=== PATIENT | male | born 1945 | race African-American/Black ===

== ENCOUNTER 2017-01-08 19:14 | Inpatient (IN) ==
[~2017-01-08 19:14] MED LIST: NS ONE
[2017-01-08] MEDS ORDERED: QUELICIN ONE ×2 (19:19)
[2017-01-08] MEDS ORDERED: AMIDATE ONE ×2 (19:19)
[2017-01-08] MEDS ORDERED: AMIDATE IV ONE (19:30)
[2017-01-08] MEDS ORDERED: QUELICIN IV ONE (19:30)
[2017-01-08 19:38] LABS: MANUAL DIFF NEEDED? NO
[2017-01-08 19:42] LABS: BASO% 0.3 % (0.0-0.8); EOS# 0.03 X1000 (0.0-0.7); EOS% 0.3 % (0.0-10.0); HEMATOCRIT 43.3 % (42.0-52.0); HEMOGLOBIN 14.7 g/dL (14.0-18.0); IMM GRAN# 0.03 X1000 (0.0-0.04); IMM GRAN% 0.3 % (0.0-0.5); LYMPH# 2.28 X1000 (1.2-3.4); LYMPH% 19.1 % (20.5-51.1); MCH 30.9 PG (27-31); MCHC 33.9 g/dL (33-37); MCV 91.2 FL (81-99); MONO# 1.14 X1000 (0.11-0.59); MONO% 9.6 % (1.7-9.3); MPV 11.4 FL (7.4-10.4); NEUT% 70.4 % (42.2-75.2); PLT 228 X1000 (130-400); RBC 4.75 XMIL (4.7-6.1)
[2017-01-08] MEDS ORDERED: ATIVAN IV ONE (19:52)
--- NOTE | 2017-01-08 19:57 | Diag Imaging Result Doc PS360 ---
EXAM: HEAD W/O CONTRAST HISTORY: ams TECHNIQUE: CT of the head without contrast COMMENT: There is a massive intracerebral bleed. Apparently arising from the basal ganglia region on the left side. The hematoma in the basal ganglia region exceeds 4.3 x 6.9 cm in size. This has extended into the ventricular system including the third and fourth ventricles. There is marked periventricular white matter edema, complete effacement of the sulci, transtentorial herniation particularly on the left and shift of midline structures to the right by a centimeter. None of these findings were present on 11/10/2015. There is an air-fluid level in the right maxillary sinus and some fluid and mucosal thickening is present in the right ethmoids. The calvarium appears to be intact. IMPRESSION: Probable hypertensive bleed in the left basal ganglia region with extension into the ventricular system, marked cerebral edema, transtentorial and trans falcial herniation. It may be presumed that there is obstruction of the ventricular system. The findings were discussed with Howard Koroma MD at 01/08/2017 7:54 PM. Electronically signed by Perry Pittman 01/08/2017 7:55 PM
[2017-01-08] MEDS ORDERED: APRESOLINE IV ONE (20:01)
--- NOTE | 2017-01-08 20:05 | Diag Imaging Result Doc PS360 ---
EXAM: CHEST-PORTABLE HISTORY: ams/ett TECHNIQUE: AP portable at 1919 COMMENT: There is an endotracheal tube approximately 2 cm above the bridgette. The heart size appears somewhat smaller. The appearance of the chest, otherwise, considering differences in technique has not changed significantly since 10/30/2016. IMPRESSION: No evidence of acute disease. Electronically signed by Perry Pittman 01/08/2017 8:03 PM
[2017-01-08 20:16] LABS: URINE CULTURE PL NEEDED? NO
[2017-01-08 20:20] LABS: BE -2.1 mmoll (-3.0-3.0); BLOOD TYPE ARTERIAL; DRAW SITE R RADIAL; METHB 1.6 % (0.0-1.5); O2(CT) 18.9 mL/dL (15.0-23.0); PCO2(98.6) 31 mmHg (35-45); PO2(98.6) 259 mmHg (60-100); SAMPLE BLOOD; SAO2 99.7 % (95.0-100.0); SRATE 14 BPM; THB 13.5 g/dL (11.5-17.4); TVOL 600 mL; pH(98.6) 7.44 (7.35-7.45)
[2017-01-08 20:22] LABS: BILIRUBIN URINE NEGATIVE (NEGATIVE); BLOOD URINE 1+ (NEGATIVE); CLARITY CLEAR (CLEAR); COLOR YELLOW; LEUKOCYTES URINE NEGATIVE (NEGATIVE); NITRITE URINE NEGATIVE (NEGATIVE); SP GRAVITY URINE 1.015; UROBILINOGEN URINE NORMAL
[2017-01-08 20:23] LABS: URINE RBC <10 /HPF (<10); URINE SOURCE CATH; URINE WBC <10 /HPF (<10)
[2017-01-08 20:26] LABS: UR AMPHETAMINES QUAL NONE DETECTED (NONE DETECT); UR BARBITUATES QUAL NONE DETECTED (NONE DETECT); UR BENZODIAZEPIN QUAL NONE DETECTED (NONE DETECT); UR CANNABINOIDS QUAL NONE DETECTED (NONE DETECT); UR COCAINE QUAL NONE DETECTED (NONE DETECT); UR MDMA QUAL NONE DETECTED (NONE DETECT); UR METHADONE QUAL NONE DETECTED (NONE DETECT); UR METHAMPHETAMINE QUAL NONE DETECTED (NONE DETECT); UR OPIATES QUAL NONE DETECTED (NONE DETECT); UR OXYCODONE QUAL NONE DETECTED (NONE DETECT); UR PCP QUAL NONE DETECTED (NONE DETECT); UR TCA QUAL NONE DETECTED (NONE DETECT)
[2017-01-08 20:44] LABS: ALBUMIN 3.8 g/dL (3.5-5.0); CALCIUM 8.8 mg/dL (8.8-10.2); POTASSIUM 3.2 mmol/L (3.5-5.1); TOTAL BILIRUBIN 0.6 mg/dL (0.20-1.00); TOTAL PROTEIN 7.1 g/dL (6.3-8.3)
[2017-01-08 20:55] LABS: ALLEN TEST YES; MODALITY VENTILATOR
--- NOTE | 2017-01-08 21:59 | PROVIDER DOCUMENTATION ---
This chart was entered by Jennifer Moreno Scribe, acting as scribe for Howard Koroma MD. HPI-General Adult - General Stated Complaint: unresponsive Time Seen by Provider: 01/08/17 19:14 Source: other (SECURITY) Unable to obtain history due to:: urgency (unresponsive) Allergies/Adverse Reactions: Patient Allergies Allergy/AdvReac Type Severity Reaction Status Date / Time Iodinated Contrast Media - Allergy NAUSEA Verified 01/08/17 19:37 Oral and Home Medications: Home Medication List Medication Instructions Recorded Confirmed Last Taken Type Carvedilol 25 mg PO BID 11/19/13 11/22/16 1 Day Ago History Clonidine HCl 0.3 mg PO TID 11/19/13 11/22/16 1 Day Ago History Clopidogrel [Plavix] 75 mg PO DAILY 11/19/13 11/22/16 11/18/16 History Febuxostat [Uloric] 40 mg PO DAILY 11/19/13 11/22/16 1 Day Ago History Isosorbide Mononitrate [Imdur] 120 mg PO QAM 11/19/13 11/22/16 1 Day Ago History Lisinopril 10 mg PO QAM 11/19/13 11/22/16 1 Day Ago History PRAVAstatin [Pravachol] 40 mg PO QHS 11/19/13 11/22/16 1 Day Ago History Trazodone [Desyrel] 100 mg PO QHS 11/19/13 11/22/16 1 Day Ago History Glimepiride 2 mg PO BID #0 01/10/16 11/22/16 1 Day Ago Rx Famotidine 20 mg PO BID 10/30/16 11/22/16 Unknown History Hydralazine [Apresoline] 50 mg PO QAM 10/30/16 11/22/16 Unknown History - History of Present Illness -Gen Adult Nature of Presenting Problems: 71 year old M was found in hospital bathroom unresponsive by a visitor. Security was notified and then came to notify the ED staff. PT was laying face down in vomit with pants down to his knees. Severity: reports: severe Onset/Duration: reports: unsure Review of Systems - Adult - REVIEW OF SYSTEMS - ADULT ROS:: unobtainable per condition Constitutional: reports: no symptoms reported Eyes: reports: no symptoms reported Ears, Nose, Mouth & Throat: reports: no symptoms reported Cardiovascular: reports: no symptoms reported Respiratory: reports: no symptoms reported Gastrointestinal: reports: nausea, vomiting Genitourinary: reports: no symptoms reported Musculoskeletal: reports: no symptoms reported Integumentary: reports: no symptoms reported Neurological: reports: no symptoms reported Psychiatric: reports: no symptoms reported Endocrine: reports: no symptoms reported Hematologic/Lymphatic: reports: no symptoms reported Allergic/Immunologic: reports: no symptoms reported All Other Systems: Reviewed and Negative Past History - Adult - PAST MEDICAL HISTORY-ADULT Review of Records: reports: Nursing Assessment Review, Medications Reviewed Major Childhood Illnesses: reports: denies history Cardiovascular: reports: CAD, CHF, HTN Respiratory: reports: lung disease Gastrointestinal: reports: denies history Obstetrical/Gynecological: reports: denies history Genitourinary: reports: dialysis, ESRD, kidney disease Musculoskeletal: reports: denies history Neurological: reports: denies history Endocrine/Immune: reports: Diabetes Other Conditions: reports: denies history - PRIOR SURGERIES/PROCEDURES Surgical/Procedure History: reports: cholecystectomy, cardiac stent, other ( retina tear repair) - IMMUNIZATION STATUS Childhood Immunizations: See Nurse Assessment Flu Vaccine: See Nurse Assessment - FAMILY HISTORY Family History: reviewed, not pertinent Physical Exam-General - PHYSICAL EXAM-ADULT Exam Limited by: pt unresponsive Initial Vital Signs Reviewed: Yes - CONSTITUTIONAL General Appearance: other (unreponsive) - HEAD, EARS, NOSE, MOUTH & THROAT HENMT: other (edematous eye lids) - RESPIRATORY Respiratory: other (breathing on own) - CARDIOVASCULAR Cardiovascular: tachycardia Progress - PLAN OF CARE/RESULTS Progress/Plan/Lab Results: Orders Category Date Time Status CHEST-PORTABLE [RAD] Stat Exams 01/08/17 19:30 Ordered HEAD W/O CONTRAST [CT] Stat Exams 01/08/17 19:29 Ordered ABG [RESP] Routine Lab 01/08/17 19:30 Ordered CBC WITH ELECTRONIC DIFF [HEME] Stat Lab 01/08/17 19:28 Ordered CMP [COMPREHENSIVE METABOLIC PANEL] [CHEM] Stat Lab 01/08/17 19:28 Ordered Ddimer [D-DIMER PL] [COAG] Stat Lab 01/08/17 19:31 Ordered MAGNESIUM [CHEM] Stat Lab 01/08/17 19:31 Ordered PROTIME WITH INR [COAG] Stat Lab 01/08/17 19:31 Ordered PTT [COAG] Stat Lab 01/08/17 19:31 Ordered TROPONIN T Stat Lab 01/08/17 19:28 Ordered pro-bnp [PRO B-NATRIURETIC PEPTIDE] Stat Lab 01/08/17 19:31 Ordered Etomidate [Amidate] Med 01/08/17 19:30 Discontinued 40 mg IV NOW ONE Succinylcholine [Quelicin] Med 01/08/17 19:30 Discontinued 100 mg IV NOW ONE EKG [EKG] Stat Ther 01/08/17 19:29 Ordered Result Diagrams: 01/08/17 19:24 01/08/17 20:20 - REASSESSMENT Reassessment #1 Time Reassessed: 21:56 (had several lengthy conversations with family and they have decided to withdrawl support and allow natural ) Status: unchanged - EKG 1 Time of EKG reading by physician:: 19:23 EKG Read and Signed by:: Howard Koroma EKG Interpretation (*Must complete 3 of following elements*): Abnormal Rate: 117 Rhythm: sinus tachycardia QRS: LVH (with QRS widening) - CT/MRI 1 CT Study: Head Impression: Abnormal (left basal ganglial bleed extending into all ventricals with herniation: radiologist), Discussed w/Radiology - CONSULTS/PCP/HOSPITALIST Notification #1 *Consult/PCP/Hospitalist*: Radiologist Time Discussed: 19:54 Consult Disposition: other (left basal ganglial bleed extending into all ventricals with herniation) #2 Consult: ED Doc ([facility] ED) Time Discussed: 20:03 Consult Disposition: other (agreed that pt is terminal and moribund) Procedures - INTUBATION Time of Intubation: 19:25 Tube Size (cm): 7.5 Pretreated with 100% Oxygen?: Yes Breath Sounds after Intubation: equal ETT Primary Tube Confirmation: Capnometry CO2 Change, Direct Visualization, Chest Rise and Fall, Tube placement verified on XRAY Intubation Complications: no complications Vent Settings: See Respiratory Therapy Notes Procedure Comment: 25 at right lip Departure - Departure Date of Disposition Decision: 01/08/17 Time of Disposition Decision: 19:59 DIAGNOSIS: Basal ganglia hemorrhage Disposition: [facility] 02 Certified Medical Emergency: Emergent Condition: Critical Referrals and Follow-Ups: None,PCP [Primary Care Provider] - - Critical Care Note This patient required my direct & personal management of CC.: Yes Total Time (mins): 60 Critical Care Statement: This patient required my direct personal management to treat or rule out processes, the absence of which, could potentiallly result in sudden, clinically significant life or limb threatening deterioration. This chart was documented by the indicated scribe, (Jennifer Moreno Scribe) and accurately reflects the services I performed and decisions made by me, Howard Koroma MD, as attested by the provider's signature.
[2017-01-08 22:11] VITALS: BP 120/62
[2017-01-09] MEDS ORDERED: NS 1,000 ML ONE ×2 (03:19)
--- NOTE | 2017-01-09 04:49 | EKG Report ---
Test Performed on : 01/08/2017 8:58:01 PM Test Reason : MONITOR CHANGES Blood Pressure : / mmHG Vent. Rate : 067 BPM Atrial Rate : 067 BPM P-R Int : 186 ms QRS Dur : 096 ms QT Int : 510 ms P-R-T Axes : 068 044 133 degrees QTc Int : 538 ms Sinus rhythm. with premature atrial complexes. Voltage criteria for left ventricular hypertrophy ST \T\ T wave abnormality, consider lateral ischemia Prolonged QT Abnormal ECG When compared with ECG of 08-JAN-2016 14:57, premature atrial complexes. are now present ST now depressed in Anterior leads T wave inversion more evident in Lateral leads Unconfirmed Result
--- NOTE | 2017-01-09 04:54 | EKG Report ---
Test Performed on : 01/08/2017 7:23:32 PM Test Reason : UNRESPONSIVE Blood Pressure : / mmHG Vent. Rate : 117 BPM Atrial Rate : 117 BPM P-R Int : 168 ms QRS Dur : 118 ms QT Int : 340 ms P-R-T Axes : 078 051 082 degrees QTc Int : 474 ms Sinus tachycardia. Left ventricular hypertrophy with QRS widening Abnormal ECG No previous ECGs available Unconfirmed Result
== END 2017-01-08 22:30 | disposition expired ==
LOC: P.ED 19:14 → P.MEDSURG 22:10
PROVIDERS: ATTEND Internal Medicine